=== PATIENT | male | born 1990 | race African-American/Black ===

== ENCOUNTER 2016-04-07 11:15 | Inpatient (IN) | payer OTHER ==
--- NOTE | ~2016-04-07 | DS ---
Unit #: [id number] #: [id number] Patient: MEÑO ADAMS [id number] [facility] [address] [place] [address] [id number] I MR#: [id number] NAME: MEÑO ADAMS ROOM: 32 Age: 25 Sex: M Admission Date: 04/07/2016 : 1990 Discharge Date: 04/12/2016 Attending Physician: Elmer Gusman M.D. Primary Care Physician: Primary Care Physician No DISCHARGE SUMMARY IDENTIFYING DATA Mr. Adams is a 25-year-old male, who is a resident of [place], [place] and was transferred to us from [facility] Emergency Room. DISCHARGE DIAGNOSES Psychiatric: Major depressive disorder, recurrent, moderate, without psychotic features; alcohol abuse, moderate; cannabis abuse, moderate. Medical: None. Stressors: Moderate psychosocial stressors. HISTORY OF PRESENT ILLNESS Please see initial psychiatric evaluation for details. PAST PSYCHIATRIC HISTORY Please see initial psychiatric evaluation for details. PAST MEDICAL HISTORY Please see initial psychiatric evaluation for details. HOSPITAL COURSE The patient [facility] and was oriented to the hospital environment; however, his presentation was quite different from his initial complaint as he was seen to be acutely psychotic, agitated, irritable, and exhibiting bizarre behavior and particularly exhibiting sexually acting-out behavior to where he immediately had to be moved to a different floor. Once again, he was exhibiting inappropriate sexual behavior and exposing himself and calling names and touching females and refusing to follow up with any treatment recommendations and then he was needing p.r.n. medication injections and had a very violent outburst, which required code being called and the patient ended up in restraints and intramuscular injections of Haldol and Benadryl have been given. He then was able to calm down significantly following that episode and initially was maintained on one-to-one level of precaution with a male staff only due to his sexually acting-out behavior. However, he was able to come off it and was calm and stated he needs to get out and has a school to attend and was willing to do the treatment on an outpatient basis and was denying any suicidal ideations, intent, or plan and was not seen to be danger to self or anyone else, and as such, it was decided that he will be discharged home and will continue treatment on an outpatient basis. DISCHARGE MEDICATIONS Zoloft 100 mg a day for depression and trazodone 100 mg at bedtime for Unit #: [id number] #: [id number] Patient: MEÑO ADAMS. DISCHARGE CONDITION Stable. PROGNOSIS Guarded. Dictated by... Jose Juan Aaron/gomez TD: 04/12/2016 23:58 JOB #: [id number] DISCHARGE SUMMARY X Elmer Gusman MD X DISCHARGE SUMMARY
--- NOTE | ~2016-04-07 | PN ---
Unit #: [id number] #: [id number] Patient: MEÑO COLBY [id number] [facility] [address] [place] [address] [id number] I MR#: [id number] NAME: MEÑO COLBY ROOM: 32 Age: 25 Sex: M Admission Date: 04/07/2016 : 1990 Attending Physician: Elmer Gusman M.D. Admitting Physician: Elmer Gusman M.D. Primary Care Physician: Primary Care Physician Rachel SANTIAGO NOTES DATE April 10, 2016 DISCUSSION Mr. Colby is a 25-year-old male, who was seen today and chart was reviewed and the case was discussed with the staff. He appears to b doing better than yesterday after having a rough day, he has been rather calmer and cooperative, though has been maintained on one-to-one level of precaution and remains acutely psychotic with a bizarre behavior and unable to be redirected, and carry on meaningful conversation. MENTAL STATUS EXAMINATION Young male, who was casually dressed with fair personal hygiene and appears to be in no acute distress or discomfort. He was awake and alert with impaired attention and concentration. His mood is anxious with a congruent affect. His speech is slow and restricted in content. His thought processes are disorganized with some looseness of associations. His insight and judgment remain significantly impaired. TREATMENT PLAN 1. We will continue him on his current medications and treatment protocol, and will monitor his response to the medications, and make further adjustments as needed. 2. We will continue to followup. Dictated by... Jose Juan Aaron/krystyna TD: 04/11/2016 05:22 JOB #: [id number] Unit #: [id number] #: [id number] Patient: MEÑO COLBY PROGRESS NOTES X Elmer Gusman MD PROGRESS NOTE
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
--- NOTE | ~2016-04-07 | HP ---
Unit #: [id number] #: [id number] Patient: PIPER ADAMS [id number] [place] [address] [id number] I MR#: [id number] NAME: PIPER ADAMS ROOM: 32 Age: 25 Sex: M Admission Date: 04/07/2016 : 1990 Attending Physician: Elmer Gusman M.D. Admitting Physician: Elmer Gusman M.D. Primary Care Physician: Primary Care Physician No HISTORY AND PHYSICAL HISTORY OF PRESENT ILLNESS Piper is a 25 year old admitted to [address] [place] [address] with depression and verbalizing wanting to hurt himself. PAST MEDICAL HISTORY Nothing significant. PAST SURGICAL HISTORY Nothing reported. ALLERGIES No known drug allergies. SOCIAL HISTORY He does not smoke. Drinks alcohol and uses marijuana on a regular basis. FAMILY HISTORY Medically noncontributory. REVIEW OF SYSTEMS CONSTITUTIONAL: No fever or chills. HEENT: Denies any sore throat, ear pain or runny nose. CARDIOVASCULAR: Denies chest pain, irregular heart rhythm or palpitations. CHEST: Denies shortness of breath or cough. No hemoptysis. GASTROINTESTINAL: Denies nausea, vomiting, diarrhea or chronic constipation. ENDOCRINE: Denies history of increased thirst or urination. No recent significant weight loss or gain. GENITOURINARY: Denies dysuria, frequency, or hematuria. SKIN: Denies any rashes. HEMATOLOGIC: Denies history of increased bleeding or bruising. MUSCULOSKELETAL: Denies any hot, swollen joints. No generalized muscle pain. NEUROLOGIC: Denies problems with vision or speech. No frequent, severe headaches. No numbness, tingling or weakness in any extremities. Denies loss of bladder or bowel control. CURRENT MEDICATIONS 1. Zoloft 100 mg q. day. 2. Vistaril p.r.n. 3. Desyrel 100 mg q.h.s. 4. Milk of Magnesia p.r.n. 5. Maalox p.r.n. Unit #: [id number] #: [id number] Patient: PIPER ADAMS 6. Tylenol p.r.n. 7. Nicotine patch 7 mg q. day. PHYSICAL EXAMINATION GENERAL: Alert, well nourished. No apparent distress. VITAL SIGNS: Blood pressure 124/86, heart rate 100, respirations 16, and temperature 98.6. WEIGHT: 190. HEIGHT: 6 feet 2 inches. SKIN: Warm and dry without rash or lesion. HEENT: Normocephalic. TMs not viewed. Oral and nasal passages clear. Conjunctivae clear. PERRLA. EOMs intact. NECK: Supple without lymphadenopathy or thyromegaly. HEART: Regular rate and rhythm without murmur. LUNGS: Clear. ABDOMEN: Soft, nontender. : Not done. EXTREMITIES: No evidence of cyanosis, clubbing or edema. Moves all without focal deficit. NEUROLOGICAL: Grossly within normal limits. Cranial Nerves: II: Visual cantu are intact. III, IV AND : Extraocular movements are intact. Pupils are equal, round and reactive to light. V: Facial sensation is grossly normal. VII: Facial movements and expression are normal. VIII: Auditory acuity grossly intact. IX, X: Uvula is midline. Phonation is normal. XI: Patient shrugs shoulders and turns head normally. XII: Tongue protrudes in the midline. Sensory and Motor Function: Sensory and motor sensation is grossly normal. Motor: moves all extremities well. Coordination: Gait is normal. Deep Tendon Reflexes: Intact. IMPRESSION Psychiatric admission. RECOMMENDATIONS PSYCHIATRIC: Per psychiatrist. MEDICAL: I see no contraindication to participate in this facility's activities. MEDICAL PROGNOSIS Good. MEDICAL CONDITION Stable. Dictated by... Zakiya Urena P.A.-C. for Jose Juan Jauregui/rach TD: 04/08/2016 09:36 JOB #: [id number] Unit #: [id number] #: [id number] Patient: PIPER ADAMS HISTORY AND PHYSICAL X Zakiya Urena X HISTORY AND PHYSICAL
--- NOTE | ~2016-04-07 | PN ---
Unit #: [id number] #: [id number] Patient: MEÑO COLBY [id number] [facility] [address] [place] [address] [id number] I MR#: [id number] NAME: MEÑO COLBY ROOM: 32 Age: 25 Sex: M Admission Date: 04/07/2016 : 1990 Attending Physician: Elmer Gusman M.D. Admitting Physician: Elmer Gusman M.D. Primary Care Physician: Primary Care Physician Rachel SANTIAGO NOTES DATE 04/11/2016 DISCUSSION Mr. Colby is a 25-year-old male who was seen today and chart was reviewed and case was discussed with the staff. He has been anxious, withdrawn and rather seclusive to himself. Meanwhile, he has been cooperative with treatment recommendations and has been taking medications and tolerating them fairly well with no reported side effects. MENTAL STATUS EXAMINATION Young male who was casually dressed with fair personal hygiene and appears to be in no acute distress or discomfort. He was awake and alert on interaction with intact orientation. His mood was anxious with congruent affect. He denies any suicidal or homicidal ideation and also denies any auditory or visual hallucinations. His insight and judgement remains slightly impaired. TREATMENT PLAN 1. Will continue him on his current medications and treatment protocol. Will monitor his response to the medications and make further adjustments as needed. 2. Will continue follow up. Dictated by... Jose Juan Aaron/tona TD: 04/12/2016 15:52 JOB #: [id number] Unit #: [id number] #: [id number] Patient: MEÑO COLBY PROGRESS NOTES X Elmer Gusman MD PROGRESS NOTE
--- NOTE | ~2016-04-07 | PN ---
Unit #: [id number] #: [id number] Patient: MEÑO CLOBY [id number] [facility] [address] [place] [address] [id number] I MR#: [id number] NAME: MEÑO COLBY ROOM: 32 Age: 25 Sex: M Admission Date: 04/07/2016 : 1990 Attending Physician: Elmer Gusman M.D. Admitting Physician: Elmer Gusman M.D. Primary Care Physician: Primary Care Physician Rachel SANTIAGO NOTES DATE April 08, 2016 DISCUSSION Mr. Colby is a 25-year-old male, who was seen today and chart was reviewed and the case was discussed with the staff. Staff reports that the patient has been anxious, restless, and irritable and has been exhibiting bizarre behavior. He has been on acting out precautions and he has been reaching out and touching females and does not appear to be agitated or irritable, or having any malicious intent behind it, as he walks out to talk to me from his bathroom with his towel wrapped around him and was seen to be very animated and was constantly making gestures and trying to express and explain himself, and had difficulty doing a good job with that. However, no anger or aggression has been reported. MENTAL STATUS EXAMINATION Young male, who was casually dressed with fair personal hygiene and appears to be in no acute distress or discomfort. He was awake and alert with impaired attention and concentration. His mood is anxious with a congruent affect. His speech is fluent and tangential. His thought processes are disorganized with some looseness of associations and flight ideations and delusional behavior. His insight and judgment remain significantly impaired. TREATMENT PLAN 1. We will continue him on his current medications and will adjust the medication and recommend adding antidepressant and anxiolytic therapy. 2. We will continue to followup. Dictated by... Jose Juan Aaron/krystyna TD: 04/09/2016 12:21 JOB #: [id number] Unit #: [id number] #: [id number] Patient: MEÑO COLBY PEAJENNY PROGRESS NOTES X Elmer Gusman MD NOTE
--- NOTE | ~2016-04-07 | PA ---
Unit #: [id number] #: [id number] Patient: MEÑO ADAMS [id number] [facility] [address] [place] [address] [id number] I MR#: [id number] NAME: MEÑO ADAMS ROOM: P132 Age: 25 Sex: M Admission Date: 04/07/2016 : 1990 Date of Assessment: Attending Physician: Elmer Gusman M.D. Admitting Physician: Elmer Gusman M.D. Primary Care Physician: Primary Care Physician No PSYCHIATRIC ASSESSMENT DATE OF SERVICE 04/07/2016. IDENTIFYING DATA Mr. Adams is a 25-year-old single male who is a resident of [place], [place] and was transferred to us from [facility] Emergency Room. CHIEF COMPLAINT "I'm depressed. I'm having suicidal thoughts." HISTORY OF PRESENT ILLNESS Mr. Adams is a 25-year-old male who was transferred to us from emergency room at [facility] where he presented early in the morning reporting suicidal ideation and depression states that he is depressed due to family stressors and recently becoming homeless and stated that he does not care about his life anymore and does not want to keep fighting for anything and reports that he wants to jump in front of traffic or "something worse." He was unable to maintain his own safety if he was to be discharged from the hospital and unable to contract for safety and does report increasing depression, anxiety, disturbed sleep, psychomotor retardation, feelings of hopelessness and helplessness, and suicidal ideation with intent and plan and as such, inpatient recommendation for psychiatric treatment, safety and stabilization was made and the patient was medically cleared and transferred to us. SUBSTANCE ABUSE HISTORY The patient reports history of alcohol and cannabis abuse with the last use of both of them being on the day of coming to the hospital. He reports that he has been using both of those on regular basis. PAST PSYCHIATRIC HISTORY The patient has not had any prior inpatient or outpatient psychiatric treatment. Review of the medical records indicated currently he is not active in any treatment program, is not seeing a psychiatrist, not taking any psychotropic medications. PAST MEDICAL HISTORY No acute or chronic medical illnesses. ALLERGIES Ibuprofen. Unit #: [id number] #: [id number] Patient: MEÑO ADAMS PERSONAL AND SOCIAL HISTORY A 25-year-old male who reports that he is single and unemployed, and essentially homeless and has poor social support system. MENTAL STATUS EXAMINATION Young male who was casually dressed with fair personal hygiene, appears to be in no acute distress or discomfort. He was awake and alert on interaction with intact orientation to time, place, and person. His mood was anxious and depressed with a congruent affect. His speech was slow and restricted in content. His thought processes were disorganized with some looseness of associations and suicidal ideations. His insight and judgment remain significantly impaired. DIAGNOSTIC IMPRESSION Psychiatric: Major depressive disorder, recurrent, moderate, without psychotic features; alcohol abuse, moderate; cannabis abuse, moderate. Medical: None. Stressors: Moderate psychosocial stressors. TREATMENT PLAN 1. The patient has presented with history of mood disorder and substance abuse, and has been decompensating and will need inpatient hospitalization for safety and stabilization. We will start him back on his home medications. We will adjust the medications. We will also consider a trial of antidepressant therapy. 2. Supportive therapy was provided to the patient. ESTIMATED LENGTH OF STAY 5 to 7 days. ABILITY TO HELP SELF Limited. WILLINGNESS TO HELP SELF The patient appears to be willing to help self. STRENGTHS 1. Communicative. 2. Cooperative. PROBLEMS 1. Chronic dysphoric symptoms. 2. Poor social support system. DISCHARGE CRITERIA This will be contingent upon the patient's ability to show resolution of his depression and anxiety as well as his ability to stay safe to himself, particularly after discharge from the hospital. Dictated by... Jose Juan Aaron/gomez TD: 04/08/2016 22:22 JOB #: [id number] Unit #: [id number] #: [id number] Patient: MEÑO ADAMS PSYCHIATRIC ASSESSMENT X Elmer Gusman MD X PSYCHIATRIC ASSESSMENT
[~2016-04-07 11:15] MED LIST: ERYTHROMYCIN O3.5 GM OD; KEFLEX500 MG PO; NAPROSYN500 MG PO; NIZORAL 2% CREA15 GM EXT; VICODIN 5/1 TAB 5/50 PO
== END 2016-04-12 13:03 | disposition home or self-care (01) | DRG 885 ==
LOC: P2S 11:15 → P1S 17:31
DX: F33.1 Major depressive disorder, recurrent, moderate (principal); F10.10 Alcohol abuse, uncomplicated; F12.10 Cannabis abuse, uncomplicated; F17.200 Nicotine dependence, unspecified, uncomplicated
CPT/HCPCS: J1200; J1630

== ENCOUNTER 2016-05-04 23:44 | Emergency (ER) | payer OTHER ==
[2016-05-05 00:55] LABS: AMPHETAMINE POS (NEG); BARBITURATES POS (NEG); BENZODIAZEPINES NEG (NEG); COCAINE NEG (NEG); MARIJUANA POS (NEG); OPIATES NEG (NEG); TRICYCLIC ANTIDEPRESSANTS NEG (NEG); U METHADONE NEG (NEG)
[2016-05-05 01:10] LABS: ACETAMINOPHEN <10 ug/mL; ALBUMIN SERUM 4.2 g/dL (3.5-5.0); ALCOHOL BLOOD 5 mg/dL (0); ALKALINE PHOSPHATASE 93 U/L (32-92); ALT (SGPT) 229 U/L (10-40); AST (SGOT) 61 U/L (10-42); BILIRUBIN, DIRECT 0.1 mg/dL (0.0-0.2); BILIRUBIN,INDIRECT 0.3 mg/dL (0.0-0.9); BILIRUBIN,TOTAL 0.4 mg/dL (0.2-2.0); BLOOD UREA NITROGEN 14 mg/dL (9-23); CALCIUM SERUM 8.9 mg/dL (8.4-10.2); CARBON DIOXIDE 24 mmol/L (22-31); CHLORIDE 98 mmol/L (100-111); CREATININE SERUM 0.7 mg/dL (0.6-1.4); GLOM FILT RATE Estimated 152.1 mL/min (>60); GLUCOSE FASTING 115 mg/dL (70-110); POTASSIUM 3.7 mmol/L (3.5-5.1); PROTEIN TOTAL SERUM 7.4 g/dL (6.0-8.3); SALICYLATE <4.0 mg/dL; SODIUM 132 mmol/L (135-145)
== END 2016-05-05 11:10 | disposition short-term general hospital (02) ==
LOC: CED 23:44
PROVIDERS: Emergency Medicine
DX: R45.851 Suicidal ideations (principal); F31.9 Bipolar disorder, unspecified; F90.9 Attention-deficit hyperactivity disorder, unspecified type
CPT/HCPCS: 36415; 80048; 80076; 80307; 99285; G0480

== ENCOUNTER 2016-05-05 11:30 | Inpatient (IN) | payer OTHER ==
--- NOTE | ~2016-05-05 | PN ---
Unit #: [id number] #: [id number] Patient: MEÑO ADAMS [id number] [facility] [address] [place] [address] [id number] I MR#: [id number] NAME: MEÑO ADAMS ROOM: P252 Age: 25 Sex: M Admission Date: 05/05/2016 : 1990 Attending Physician: Elmer Gusman M.D. Admitting Physician: Jose Juan Aaron PROGRESS NOTES DATE OF SERVICE: 05/09/2016 SUBJECTIVE Mr. Adams is a 25-year-old male, who was seen today and chart was reviewed and the case was discussed with the staff. He has been anxious, withdrawn, and rather seclusive to himself. Meanwhile, he has been cooperative with the treatment recommendations and has been taking the medications and tolerating them fairly well with no reported side effects. MENTAL STATUS EXAMINATION Young male, who was casually dressed with fair personal hygiene, appears to be in no acute distress or discomfort. He was awake and alert with impaired attention and concentration. His mood was anxious with a congruent affect. His speech was slow and restricted in content. His thought processes were disorganized with some looseness of associations. His insight and judgment remain significantly impaired. TREATMENT PLAN 1. We will continue him on his current medications and treatment protocol. We will monitor his response and make further adjustments as needed. 2. We will continue to follow up. Dictated by... Jose Juan Aaron/lucianal TD: 05/09/2016 12:59 JOB #: [id number] Unit #: [id number] #: [id number] Patient: MEÑO ADAMS PROGRESS NOTES Page 1 of 1 X Elmer Gusman MD PROGRESS NOTE
--- NOTE | ~2016-05-05 | DS ---
Unit #: [id number] #: [id number] Patient: MEÑO ADAMS [id number] [facility] [address] [place] [address] [id number] I MR#: [id number] NAME: MEÑO ADAMS ROOM: [facility] Age: 25 Sex: M Admission Date: 05/05/2016 : 1990 Discharge Date: 05/10/2016 Attending Physician: Elmer Gusman M.D. Primary Care Physician: Primary Care Physician No DISCHARGE SUMMARY IDENTIFYING DATA Mr. Adams is a 25-year-old single male who is known to us from previous encounter, was transferred to us from [facility]. DISCHARGE DIAGNOSES Psychiatric: Major depressive disorder, recurrent, moderate, without psychotic features; alcohol abuse, moderate; cannabis abuse, moderate; cocaine abuse, moderate. Medical: None. Stressors: Moderate psychosocial stressors. HISTORY OF PRESENT ILLNESS Please see initial psychiatric evaluation for details. PAST PSYCHIATRIC HISTORY Please see initial psychiatric evaluation for details. PAST MEDICAL HISTORY Please see initial psychiatric evaluation for details. HOSPITAL COURSE The patient was [facility] and was oriented to the hospital environment. Routine p.r.n. medications were initiated, and he was started back on his home medications and medications were adjusted and he was closely monitored. He was taking the medications regularly and was tolerating them fairly well and was able to show a decent therapeutic response with improvement in depression and anxiety and as such, it was decided that he will be discharged home and will continue treatment on an outpatient basis. DISCHARGE MEDICATIONS Zoloft 100 mg a day for depression, Zyprexa 10 mg at bedtime for mood disorder, and trazodone 100 mg at bedtime for sleep. DISCHARGE CONDITION Stable. PROGNOSIS Fair. Dictated by... Elmer Gusman M.D. Unit #: [id number] #: [id number] Patient: MEÑO ADAMS IAA/modl TD: 05/10/2016 17:11 JOB #: [id number] DISCHARGE SUMMARY Page 1 of 1 X Elmer Gusman MD X DISCHARGE SUMMARY
--- NOTE | ~2016-05-05 | PA ---
Unit #: [id number] #: [id number] Patient: MEÑO ADAMS [id number] [facility] [address] [place] [address] [id number] MR#: [id number] NAME: MEÑO ADAMS ROOM: P252 Age: 25 Sex: M Admission Date: 05/05/2016 : 1990 Date of Assessment: 05/05/2016 Attending Physician: Elmer Gusman M.D. Admitting Physician: Elmer Gusman M.D. Primary Care Physician: Primary Care Physician No PSYCHIATRIC ASSESSMENT DATE OF SERVICE 05/05/2016. IDENTIFYING DATA Mr. Adams is a 25-year-old single male, who is a resident of [place], [place], and was transferred to us from [facility] Emergency Room. CHIEF COMPLAINT "Suicidal ideation and my ADHD." HISTORY OF PRESENT ILLNESS Mr. Adams is a 25-year-old male, who was transferred to us from [facility], where he presented reporting that he has been having suicidal thoughts for the past week and yesterday and "played in traffic." He reports that his plan is to overdose on street drugs and has access to such drugs and stated that he cannot stop the thoughts and has been having "what it is." He reports precipitating events being separation from his 6 months ago and yesterday changed her name on Facebook to a maiden name and he stated a rachael brought him here and dropped him off at the emergency room. 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; however, reports poor social support system and has been living with his father and stated that he feels incompatible to everybody and misses his and he is sad about the separation and the broke up with him and he is currently unemployed and reports financial stressors and feelings of hopelessness and helplessness, and "I feel like I lost control." He also stated that he has a decrease in his activities of daily living and his personal hygiene and he has been sleeping more and he has also been eating more and does report suicidal ideations with intent and plan, and does have a history of suicide attempt a month ago by cutting his wrist and as such, recommendation for inpatient level of care for safety and stabilization was made and the patient was medically cleared and transferred to us. SUBSTANCE ABUSE HISTORY The patient has history of alcohol, cannabis, and cocaine abuse, and reports that he has been drinking a pint of liquor on weekends and has been smoking cannabis and cocaine and that he stated no use of synthetic drugs, then later indicated that he has used spice in the past and has history of previous blackouts when using spice and alcohol together and he reports that he is now smoking cannabis on daily basis, but "I'm trying to cut down to just weekends." Unit #: [id number] #: [id number] Patient: MEÑO ADAMS PAST PSYCHIATRIC HISTORY The patient has had history of inpatient psychiatric hospitalization at [facility] along with outpatient treatment at [facility] and has been diagnosed and treated for bipolar disorder. Review of the medical records indicate that he is supposed to be on Zyprexa and Zoloft and trazodone, but has been rather noncompliant with medication and as such, has been decompensating. PAST MEDICAL HISTORY No acute or chronic medical illnesses. ALLERGIES No known medication allergies. PERSONAL AND SOCIAL HISTORY A 25-year-old male, who reports that he is single, unemployed, and lives at home with his father and has poor social support system. MENTAL STATUS EXAMINATION Young male who was casually dressed with fair personal hygiene, appears to be in no acute distress or discomfort. He was awake and alert on interaction with intact orientation to time, place, and person. His mood was anxious and depressed with a congruent affect. His speech was slow and restricted in content. His thought processes were disorganized with some looseness of associations and flight of ideas and suicidal ideations. His insight and judgment remain significantly impaired. DIAGNOSTIC IMPRESSION Psychiatric: Major depressive disorder, recurrent, moderate, without psychotic features; alcohol abuse, moderate; cannabis abuse, moderate; cocaine abuse, moderate. Medical: None. Stressors: Moderate psychosocial stressors. TREATMENT PLAN 1. The patient has presented with history of substance abuse and mood disorder and has been decompensating and will need inpatient hospitalization for detoxification, safety, and stabilization. We will start him back on his home medications. We will adjust the medications and monitor response. 2. Supportive therapy was provided to the patient. 3. Safe, structured, and nourishing environment will be provided. ESTIMATED LENGTH OF STAY 5 to 7 days. ABILITY TO HELP SELF Limited. WILLINGNESS TO HELP SELF The patient appears to be willing to help self. STRENGTHS 1. Communicative. 2. Cooperative. Unit #: [id number] #: [id number] Patient: MEÑO ADAMS PROBLEMS 1. Chronic dysphoric symptoms. 2. Poor social support system. DISCHARGE CRITERIA This will be contingent upon the patient's ability to show resolution of his depression and psychosis and his ability to stay safe to himself, particularly after discharge from the hospital. Dictated by... Emler Gusman M.D. ZOIE/gomez TD: 05/07/2016 01:17 JOB #: [id number] PSYCHIATRIC ASSESSMENT Page 1 of 1 X Elmer Gusman MD PSYCHIATRIC ASSESSMENT
--- NOTE | ~2016-05-05 | HP ---
Unit #: [id number] #: [id number] Patient: PIPER ADAMS [id number] [place] [address] [id number] I MR#: [id number] NAME: PIPER ADAMS ROOM: P252 Age: 25 Sex: M Admission Date: 05/05/2016 : 1990 Attending Physician: Elmer Gusman M.D. Admitting Physician: Elmer Gusman M.D. Primary Care Physician: Primary Care Physician No HISTORY AND PHYSICAL HISTORY OF PRESENT ILLNESS Piper is a 25-year-old male admitted to [address] [place] [address] with depression and verbalizing wanting to hurt himself. PAST MEDICAL HISTORY Nothing significant. PAST SURGICAL HISTORY Nothing reported. ALLERGIES No known drug allergies. SOCIAL HISTORY Smokes one pack per day. Drinks alcohol on occasion. Admits to using marijuana and cocaine frequently. FAMILY HISTORY Medically noncontributory. REVIEW OF SYSTEMS CONSTITUTIONAL: No fever or chills. HEENT: Denies any sore throat, ear pain or runny nose. CARDIOVASCULAR: Denies chest pain, irregular heart rhythm or palpitations. CHEST: Denies shortness of breath or cough. No hemoptysis. GASTROINTESTINAL: Denies nausea, vomiting, diarrhea or chronic constipation. ENDOCRINE: Denies history of increased thirst or urination. No recent significant weight loss or gain. GENITOURINARY: Denies dysuria, frequency, or hematuria. SKIN: Denies any rashes. HEMATOLOGIC: Denies history of increased bleeding or bruising. MUSCULOSKELETAL: Denies any hot, swollen joints. No generalized muscle pain. NEUROLOGIC: Denies problems with vision or speech. No frequent, severe headaches. No numbness, tingling or weakness in any extremities. Denies loss of bladder or bowel control. CURRENT MEDICATIONS 1. Zoloft 100 mg daily 2. Desyrel 100 mg q.h.s. Unit #: [id number] #: [id number] Patient: PIPER ADAMS 3. Zyprexa 10 mg q.h.s. 4. Milk of Magnesia p.r.n. 5. Maalox p.r.n. 6. Tylenol p.r.n. 7. Nicotine patch 14 mg daily PHYSICAL EXAMINATION GENERAL: Alert, well-nourished, in no apparent distress. VITAL SIGNS: Blood pressure 140/88, heart rate 90, respirations 16, temperature 98.6. WEIGHT: 172 pounds. HEIGHT: 6'2". SKIN: Warm and dry without rash or lesion. HEENT: Normocephalic. TMs not viewed. Oral and nasal passages clear. Conjunctivae clear. Pupils equal, round and reactive to light and accommodation. Extraocular movements intact. NECK: Supple without lymphadenopathy or thyromegaly. HEART: Regular rate and rhythm without murmur. LUNGS: Clear. ABDOMEN: Soft, nontender. : Not done. EXTREMITIES: No evidence of cyanosis, clubbing or edema. Moves all extremities without focal deficit. NEUROLOGICAL: Grossly within normal limits. Cranial Nerves: II: Visual cantu are intact. III, IV AND : Extraocular movements are intact. Pupils are equal, round and reactive to light. V: Facial sensation is grossly normal. VII: Facial movements and expression are normal. VIII: Auditory acuity grossly intact. IX, X: Uvula is midline. Phonation is normal. XI: Patient shrugs shoulders and turns head normally. XII: Tongue protrudes in the midline. Sensory and Motor Function: Sensory and motor sensation is grossly normal. Motor: moves all extremities well. Coordination: Gait is normal. Deep Tendon Reflexes: Intact. IMPRESSION Psychiatric admission. RECOMMENDATIONS PSYCHIATRIC: Per psychiatrist. MEDICAL: I see no contraindications to participating in facility's activities. MEDICAL PROGNOSIS Good. MEDICAL CONDITION Stable. Dictated by... Zakiya Urena P.A.-C. for Jose Juan Jauregui/jesse Unit #: [id number] #: [id number] Patient: PIPER ADAMS TD: 05/06/2016 03:12 JOB #: [id number] HISTORY AND PHYSICAL Page 1 of 1 X Zakiya Urena HISTORY AND PHYSICAL
--- NOTE | ~2016-05-05 | PN ---
Unit #: [id number] #: [id number] Patient: MEÑO COLBY [id number] [facility] [address] [place] [address] [id number] I MR#: [id number] NAME: MEÑO COLBY ROOM: P252 Age: 25 Sex: M Admission Date: 05/05/2016 : 1990 Attending Physician: Elmer Gusman M.D. Admitting Physician: Elmer Gusman M.D. Primary Care Physician: Primary Care Physician Rachel SANTIAGO NOTES DATE 05/07/2016 DISCUSSION Mr. Colby is a 25-year-old male with mood disorder and psychosis who was seen today and chart was reviewed and case was discussed with the staff. He has been anxious, withdrawn and rather seclusive to himself though appears to be doing better in his mood and aggression. However, has been complaining of persistent depression and suicidal thoughts. He has been compliant with treatment recommendations and has been taking medications and tolerating them fairly well. MENTAL STATUS EXAMINATION Young male who was casually dressed with fair personal hygiene and appears to be in no acute distress or discomfort. He was awake and alert on interaction with intact orientation. His mood was anxious and depressed with congruent affect. His speech is slow and restricted in content. His thought processes were disorganized with looseness of associations. His insight and judgement remains slightly impaired. TREATMENT PLAN 1. Will continue on his current medications and treatment protocol. Will monitor his response to the medications and make further adjustments as needed. 2. Will continue to follow up. Dictated by... Jose Juan Aaron/tona TD: 05/08/2016 17:53 JOB #: [id number] Unit #: [id number] #: [id number] Patient: MEÑO COLBY PROGRESS NOTES Page 1 of 1 X Elmer Gusman MD PROGRESS NOTE
--- NOTE | ~2016-05-05 | PN ---
Unit #: [id number] #: [id number] Patient: EMÑO COLBY [id number] [facility] [address] [place] [address] [id number] I MR#: [id number] NAME: MEÑO COLBY ROOM: P252 Age: 25 Sex: M Admission Date: 05/05/2016 : 1990 Attending Physician: Elmer Gusman M.D. Admitting Physician: Elmer Gusman M.D. Primary Care Physician: Primary Care Physician Rachel SANTIAGO NOTES DATE OF SERVICE 05/06/2016 DISCUSSION Mr. Colby is a 25-year-old male who was seen today. Chart was reviewed and case was discussed with staff. He has been anxious and withdrawn though has not shown any agitation or irritability and has been cooperative with the treatment recommendations as he has been taking the medications and tolerating them fairly well with no reported side effects. MENTAL STATUS EXAMINATION Young male who is casually dressed with fair personal hygiene, appears to be in no acute distress or discomfort. He was awake and alert with impaired attention and concentration. His mood is anxious and depressed with congruent affect. Speech is slow and restricted in content. His thought processes were disorganized with some looseness of associations, paranoid ideations, and delusional behavior. Her insight and judgment remain significantly impaired. TREATMENT PLAN 1. We will continue him on his current medications and treatment protocol. We will monitor his response to the medications and make further adjustments as needed. 2. We will continue to follow up. Dictated by... Jose Juan Aaron/rach TD: 05/07/2016 10:11 JOB #: [id number] Unit #: [id number] #: [id number] Patient: MEÑO COLBY PROGRESS NOTES Page 1 of 1 X Elmer Gusman MD PROGRESS NOTE
--- NOTE | ~2016-05-05 | PN ---
Unit #: [id number] #: [id number] Patient: MEÑO COLBY [id number] [facility] [address] [place] [address] [id number] I MR#: [id number] NAME: MEÑO COLBY ROOM: P252 Age: 25 Sex: M Admission Date: 05/05/2016 : 1990 Attending Physician: Elmer Gusman M.D. Admitting Physician: Elmer Gusman M.D. Primary Care Physician: Primary Care Physician Rachel LEE PROGRESS NOTES DATE 05/08/2016 DISCUSSION Mr. Colby is a 25-year-old, male with mood disorder and psychosis who was seen today and chart was reviewed and case was discussed with the staff. He has been anxious, withdrawn rather seclusive to himself. Meanwhile, he has been cooperative with treatment recommendations. He has been taking medications and tolerating them fairly well with no reported side effects. MENTAL STATUS EXAM Young male who was casually dressed with fair personal hygiene, appears to be in no acute distress or discomfort. He was awake and alert with impaired attention and concentration. His mood was anxious with a congruent affect. His speech was slow and restricted in content. His thought processes were disorganized with some looseness of associations. His insight and judgement remains slightly impaired. TREATMENT PLAN 1. We will continue him on his current medications and treatment protocol. We will monitor his response to the medication and make further adjustments as needed. 2. We will continue to follow up. Dictated by... Jose Juan Aaron/jesse TD: 05/12/2016 03:59 JOB #: [id number] Unit #: [id number] #: [id number] Patient: MEÑO COLBY PROGRESS NOTES Page 1 of 1 X Elmer Gusman MD PROGRESS NOTE
[2016-05-06 09:37] LABS: BASOPHIL% 0.3 % (0-2.5); EOSINOPHIL# 0.1 X10e3 (0-0.7); EOSINOPHIL% 3.1 % (0.0-7.0); HEMATOCRIT 44.4 % (38.0-50.0); HEMOGLOBIN 14.5 gm/dL (13.0-16.0); LYMPHOCYTE# 1.9 X10e3 (1.0-3.5); LYMPHOCYTE% 47.5 % (17.0-45.0); MEAN CELL VOLUME 95.4 FL (83-96); MEAN CORPUSCULAR HEMOGLOBIN 31.3 PG (28-34); MEAN CORPUSCULAR HGB CONC 32.8 g/dL (30-36); MEAN PLATELET VOLUME 8.8 FL (6.5-11.5); MONOCYTE# 0.4 X10e3 (0-1.0); MONOCYTE% 10.8 % (3.0-12.0); NEUTROPHIL# 1.5 X10e3 (1.5-7.1); NEUTROPHIL% 38.3 % (40-75); PLATELET COUNT 219 X10e3 (140-420); RED BLOOD COUNT 4.65 X10e (3.90-5.60); RED CELL DISTRIBUTION WIDTH 14.4 % (11.0-15.5); WHITE BLOOD COUNT 3.9 X10e3 (4.0-10.5)
[2016-05-06 09:40] LABS: DIFF IND NO
[2016-05-06 10:00] LABS: THYROID STIMULATING HORMONE 1.01 uIU/ml (0.34-5.60)
[2016-05-06 10:03] LABS: ALBUMIN SERUM 4.1 g/dL (3.5-5.0); BILIRUBIN,TOTAL 0.4 mg/dL (0.2-2.0); BUN/CREATININE RATIO 16.25; CALCIUM SERUM 9.5 mg/dL (8.4-10.2); CREATININE SERUM 0.8 mg/dL (0.6-1.4); POTASSIUM 4.5 mmol/L (3.5-5.1); PROTEIN TOTAL SERUM 7.4 g/dL (6.0-8.3)
[2016-05-06 10:07] LABS: FREE THYROXIN (T4) 0.81 ng/dL (0.58-1.64)
[2016-05-07 12:25] LABS: URINE APPEARANCE CLEAR; URINE BILIRUBIN NEG (NEG); URINE BLOOD NEG (NEG); URINE COLOR YELLOW; URINE GLUCOSE NEG (NEG); URINE KETONE NEG (NEG); URINE LEUKOCYTE ESTERASE 1+ (NEG); URINE NITRATE NEG (NEG); URINE PROTEIN NEG (NEG); URINE UROBILINOGEN 0.2 MG/DL (NEG)
[2016-05-07 12:28] LABS: U HYALINE CASTS AUWI 0-2 /[LPF]; URBCS1 AUWI 0-2 /[HPF] (0-2); URINE BACTERIA AUWI NEG (NEGATIVE); URINE SQUAMOUS EPITHELIAL CELL NONE SEEN /[HPF]
== END 2016-05-10 13:00 | disposition home or self-care (01) | DRG 885 ==
LOC: P2L 11:30
PROVIDERS: Psychiatry & Neurology Psychiatry
PROC: HZ2ZZZZ Detoxification Services for Substance Abuse Treatment (ICD-10-PCS; principal; 2016-05-05)
DX: F33.1 Major depressive disorder, recurrent, moderate (principal); F14.10 Cocaine abuse, uncomplicated; F10.10 Alcohol abuse, uncomplicated; F12.10 Cannabis abuse, uncomplicated; F17.210 Nicotine dependence, cigarettes, uncomplicated
CPT/HCPCS: 80053; 81003; 84439; 84443; 85025

== ENCOUNTER 2016-06-01 16:57 | Emergency (ER) | payer OTHER | END 2016-06-02 09:10 | disposition HOOLOP | LOC: CED 16:57 | DX: R45.851 Suicidal ideations (principal); K13.0 Diseases of lips; I10 Essential (primary) hypertension; F17.200 Nicotine dependence, unspecified, uncomplicated | CPT/HCPCS: 99285 ==

== ENCOUNTER 2016-06-02 10:07 | Inpatient (IN) | payer OTHER ==
--- NOTE | ~2016-06-02 | PN ---
Unit #: [id number] #: [id number] Patient: MEÑO ADAMS [id number] [facility] [address] [place] [address] [id number] I MR#: [id number] NAME: MEÑO ADAMS ROOM: [facility] Age: 25 Sex: M Admission Date: 06/02/2016 : 1990 Attending Physician: Elmer Gusman M.D. Admitting Physician: Elmer Gusman M.D. Primary Care Physician: Primary Care Physician Rachel LEE PROGRESS NOTES DATE 06/05/2016 DISCUSSION Mr. Adams is a 25-year-old male who was seen today and chart was reviewed and case was discussed with the staff. He has been anxious, withdrawn, depressed and rather seclusive to himself. Meanwhile, he has been cooperative with treatment recommendations and has been taking medications and tolerating them fairly well with no reported side effects. MENTAL STATUS EXAMINATION Young male who was casually dressed with fair personal hygiene and appears to be in no acute distress or discomfort. He was awake and alert on interaction with intact orientation. His mood was anxious with congruent affect. He reports having suicidal ideation but denies any homicidal ideation. His insight and judgement remains slightly impaired. TREATMENT PLAN 1. Will continue on his current medications and treatment protocol. Will monitor his response to the medications and make further adjustments as needed. 2. Will continue to follow up. Dictated by... Elmer Gusman M.D. IAA/tona TD: 06/05/2016 16:23 JOB #: [id number] Unit #: [id number] #: [id number] Patient: MEÑO ADAMS PEAJENNY PROGRESS NOTES Page 1 of 1 X Elmer Gusman MD X PROGRESS NOTE
--- NOTE | ~2016-06-02 | PN ---
Unit #: [id number] #: [id number] Patient: MEÑO COLBY [id number] [facility] [address] [place] [address] [id number] I MR#: [id number] NAME: MEÑO COLBY ROOM: [facility] Age: 25 Sex: M Admission Date: 06/02/2016 : 1990 Attending Physician: Elmer Gusman M.D. Admitting Physician: Elmer Gusman M.D. Primary Care Physician: Primary Care Physician Rachel SANTIAGO NOTES DATE OF SERVICE: 06/07/2016 SUBJECTIVE Mr. Colby is a 25-year-old male who was seen today and chart was reviewed and the case was discussed with the staff. He has been anxious, withdrawn, depressed, and rather seclusive to himself with blunted affect and minimal interaction, though has been cooperative with treatment recommendations and has been taking the medication and tolerating them fairly well with no reported side effects. MENTAL STATUS EXAMINATION Young male who was casually dressed with fair personal hygiene, appears to be in no acute distress or discomfort. He was awake and alert on interaction with intact orientation. His mood was anxious with a congruent affect. He denies any suicidal or homicidal ideations, and also denies any auditory or visual hallucinations. His insight and judgment remain significantly impaired. TREATMENT PLAN 1. We will continue him on his current medications and treatment protocol. We will monitor his response to medications and make further adjustments as needed. 2. We will continue to follow up. Dictated by... Jose Juan Aaron/gomez TD: 06/07/2016 13:21 JOB #: [id number] Unit #: [id number] #: [id number] Patient: MEÑO COLBY PEAJENNY PROGRESS NOTES Page 1 of 1 X Elmer Gusman MD PROGRESS NOTE
--- NOTE | ~2016-06-02 | PN ---
Unit #: [id number] #: [id number] Patient: MEÑO COLBY [id number] [facility] [address] [place] [address] [id number] I MR#: [id number] NAME: MEÑO COLBY ROOM: 84 Age: 25 Sex: M Admission Date: 06/02/2016 : 1990 Attending Physician: Elmer Gusman M.D. Admitting Physician: Elmer Gusman M.D. Primary Care Physician: Primary Care Physician Rachel SANTIAGO NOTES DATE OF SERVICE 06/04/2016 DISCUSSION Mr. Colby is a 25-year-old male with mood disorder who was seen today. Chart was reviewed and case was discussed with staff. He remains anxious, withdrawn, depressed, and rather seclusive to himself and has been isolating a lot, and reports he was lying in his bed with his head covered under his blanket and was seen to be minimally interactive with persistent depressive symptoms, blunted affect, and poor eye contact. Meanwhile, he has (1) __ agitation and aggression and has been taking the medications, and the medications were just adjusted yesterday. He has not had anytime shown therapeutic response. MENTAL STATUS EXAMINATION Young male who is casually dressed with marginal personal hygiene and appears to be in no acute distress or discomfort. The patient was awake and alert with impaired attention and concentration. His mood is anxious and depressed with congruent affect. His speech is slow and restricted in content. He reports having suicidal ideation but denies any homicidal ideations. His insight and judgment remain slightly impaired. TREATMENT PLAN 1. We will continue him on his current medications and treatment protocol. We will monitor his response to the medications and make further adjustments as needed. 2. We will continue to follow up. Dictated by... Jose Juan Aaron/rach TD: 06/04/2016 10:53 JOB #: [id number] Unit #: [id number] #: [id number] Patient: MEÑO COLBY [facility] PROGRESS NOTES Page 1 of 1 X Uzma,Elmer Parra MD X PROGRESS NOTE
--- NOTE | ~2016-06-02 | PN ---
Unit #: [id number] #: [id number] Patient: MEÑO COLBY [id number] [facility] [address] [place] [address] [id number] I MR#: [id number] NAME: MEÑO COLBY ROOM: [facility] Age: 25 Sex: M Admission Date: 06/02/2016 : 1990 Attending Physician: Elmer Gusman M.D. Admitting Physician: Elmer Gusman M.D. Primary Care Physician: Primary Care Physician Rachel SANTIAGO NOTES DATE OF SERVICE 06/06/2016 DISCUSSION Mr. Colby is a 29-year-old white male who was seen today. Chart was reviewed and case was discussed with the staff. He has been anxious, withdrawn, and rather seclusive to himself. Meanwhile, he has been cooperative with the treatment recommendations and has been taking the medications and tolerating them fairly well with no reported side effects. MENTAL STATUS EXAMINATION Young male who is casually dressed with fair personal hygiene, appears to be in no acute distress or discomfort. She was awake and alert on interaction with intact orientation. His mood is anxious with congruent affect. His speech is slow and goal-directed. He denies any suicidal or homicidal ideations and also denies any auditory or visual hallucinations. His insight and judgment remain slightly impaired. TREATMENT PLAN 1. We will continue him on his current medications and treatment protocol. We will monitor his response to the medications and make further adjustments as needed. 2. We will continue to follow up. Dictated by... Jose Juan Aaron/rach TD: 06/06/2016 10:36 JOB #: [id number] Unit #: [id number] #: [id number] Patient: MEÑO COLBY PROGRESS NOTES Page 1 of 1 X Elmer Gusman MD PROGRESS NOTE
--- NOTE | ~2016-06-02 | DS ---
Unit #: [id number] #: [id number] Patient: MEÑO ADAMS [id number] [facility] [address] [place] [address] [id number] I MR#: [id number] NAME: MEÑO ADAMS ROOM: 84 Age: 25 Sex: M Admission Date: 06/02/2016 : 1990 Discharge Date: 06/09/2016 Attending Physician: Elmer Gusman M.D. Primary Care Physician: Primary Care Physician No DISCHARGE SUMMARY JOB NOTE: VERIFY DISCHARGE DATE IDENTIFYING DATA Mr. Adams is a 25-year-old single male, who is a resident of [place], [place] and was transferred to from [facility] on a voluntary basis. DISCHARGE DIAGNOSES Psychiatric: Major depressive disorder, recurrent, moderate, without psychotic features; methamphetamine abuse, moderate; cannabis abuse, moderate. Medical: None. Stressors: Moderate psychosocial stressors. HISTORY OF PRESENT ILLNESS Please see initial psychiatric evaluation for details. PAST PSYCHIATRIC HISTORY Please see initial psychiatric evaluation for details. PAST MEDICAL HISTORY Please see initial psychiatric evaluation for details. HOSPITAL COURSE The patient was [facility] and was oriented to the hospital environment. Routine p.r.n. medications were initiated, and he was started back on his home medications including his Zoloft and Zyprexa and was closely monitored. He was taking the medications regularly and was tolerating them fairly well and was seen to be anxious, withdrawn, and rather seclusive to himself in the beginning, though seen to be polite and pleasant. No episode of agitation or aggression was noticed and as such, it was decided that he will be discharged home and will continue treatment on an outpatient basis. DISCHARGE MEDICATIONS Zoloft 100 mg a day for depression and Zyprexa 10 mg at bedtime for psychosis. DISCHARGE CONDITION Stable. PROGNOSIS Fair. Unit #: [id number] #: [id number] Patient: MEÑO ADAMS Dictated by... Jose Juan Aaron/gomez TD: 06/09/2016 06:50 JOB #: [id number] DISCHARGE SUMMARY Page 1 of 1 X Elmer Gusman MD DISCHARGE SUMMARY
--- NOTE | ~2016-06-02 | HP ---
Unit #: [id number] #: [id number] Patient: PIPER ADAMS [id number] [facility] [address] [place] [address] [id number] MR#: [id number] NAME: PIPER ADAMS ROOM: 84 Age: 25 Sex: M Admission Date: 06/02/2016 : 1990 Attending Physician: Elmer Gusman M.D. Admitting Physician: Elmer Gusamn M.D. Primary Care Physician: Primary Care Physician No HISTORY AND PHYSICAL HISTORY OF PRESENT ILLNESS Piper is a 25-year-old admitted to [facility] because of his continued drug use. PAST MEDICAL HISTORY History of poly illicit substance abuse to include methamphetamine, marijuana and barbiturates. PAST SURGICAL HISTORY Nothing reported. ALLERGIES No known drug allergies. SOCIAL HISTORY Smokes one pack per day. Drinks alcohol on occasion. Admits to a history of poly illicit substance abuse. FAMILY HISTORY Medically noncontributory. REVIEW OF SYSTEMS CONSTITUTIONAL: No fever or chills. HEENT: Denies any sore throat, ear pain or runny nose. He reports that he fell on 05/30, sustaining significant lacerations to upper and lower lips. He was sutured in the emergency room at [facility]. CARDIOVASCULAR: Denies chest pain, irregular heart rhythm or palpitations. CHEST: Denies shortness of breath or cough. No hemoptysis. GASTROINTESTINAL: Denies nausea, vomiting, diarrhea or chronic constipation. ENDOCRINE: Denies history of increased thirst or urination. No recent significant weight loss or gain. GENITOURINARY: Denies dysuria, frequency, or hematuria. SKIN: Denies any rashes. HEMATOLOGIC: Denies history of increased bleeding or bruising. MUSCULOSKELETAL: Denies any hot, swollen joints. No generalized muscle pain. NEUROLOGIC: Denies problems with vision or speech. No frequent, severe headaches. No numbness, tingling or weakness in any extremities. Denies loss of bladder or bowel control. CURRENT MEDICATIONS 1. Zyprexa 10 mg daily Unit #: [id number] #: [id number] Patient: PIPER ADAMS 2. Zoloft 100 mg daily 3. Desyrel 100 mg at bedtime 4. Motrin p.r.n. 5. Milk of Magnesia p.r.n. 6. Maalox p.r.n. 7. Tylenol p.r.n. 8. Nicotine patch 21 mg daily 9. Cleocin 300 mg q.i.d. PHYSICAL EXAMINATION Please see admitted H and P dated 05/05/2016. This is current except for the lacerations to his upper and lower lip. Stitches are in place. There is poor skin approximation. There is no increased redness or pus noted. Significant swelling noted along the lower lip. Plan will be to keep the area clean with some peroxide mouth rinse. Patient knows to follow up with PCP at discharge. Please see H and P dated 05/05/2016. Dictated by... Coleen Abebe/teddy TD: 06/02/2016 20:13 JOB #: [id number] HISTORY AND PHYSICAL Page 1 of 1 X Zakiya Urena X HISTORY AND PHYSICAL
--- NOTE | ~2016-06-02 | PN ---
Unit #: [id number] #: [id number] Patient: MEÑO ADAMS [id number] [facility] [address] [place] [address] [id number] MR#: [id number] NAME: MEÑO ADAMS ROOM: 84 Age: 25 Sex: M Admission Date: 06/02/2016 : 1990 Attending Physician: Elmer Gusman M.D. Admitting Physician: Jose Juan Aaron PROGRESS NOTES DATE OF SERVICE: 06/08/2016 SUBJECTIVE Mr. Adams is a 25-year-old male who was seen today and chart was reviewed, and case was discussed with the staff who reports he remains anxious, withdrawn, depressed, and rather seclusive to himself. Meanwhile, he has been cooperative with treatment recommendations and has been taking the medications and tolerating them fairly well. MENTAL STATUS EXAMINATION Young male who was casually dressed with fair personal hygiene, appears to be in no acute distress or discomfort. He was awake and alert with intact orientation. His mood was anxious with a congruent affect. He denies any suicidal or homicidal ideations. His insight and judgment remain slightly impaired. TREATMENT PLAN 1. We will continue him on his current medications and treatment protocol. We will monitor his response to the medications and make further adjustments as needed. 2. We will continue to follow up. Dictated by... Jose Juan Aaron/gomez TD: 06/08/2016 11:38 JOB #: [id number] [facility] PROGRESS NOTES Page 1 of 1 X Elmer Gusman MD PROGRESS NOTE
--- NOTE | ~2016-06-02 | CO ---
Unit #: [id number] #: [id number] Patient: PIPER ADAMS [id number] [facility] [address] [place] [address] [id number] MR#: [id number] NAME: PIPER ADAMS ROOM: [facility] Age: 25 Sex: M Admission Date: 06/02/2016 : 1990 Attending Physician: Elmer Gusman M.D. Primary Care Physician: Primary Care Physician No Consultation Date: 06/02/2016 CONSULTATION REPORT JOB NOTE: DICTATED FOR NOT DICTATED Piper sustained lacerations to his mouth prior to admission. These areas were outlined and described in his admission H and P dated 06/02/2016. Please see H and P dated 06/02/2016. Dictated by... Zakiya Urena P.A.-C. for Jose Juan Jauregui/gomez TD: 06/02/2016 18:45 JOB #: [id number] CONSULTATION REPORT Page 1 of 1 X Zakiya Urena CONSULTATION REPORT
--- NOTE | ~2016-06-02 | PN ---
Unit #: [id number] #: [id number] Patient: MEÑO COLBY [id number] [facility] [address] [place] [address] [id number] I MR#: [id number] NAME: MEÑO COLBY ROOM: 84 Age: 25 Sex: M Admission Date: 06/02/2016 : 1990 Attending Physician: Elmer Gusman M.D. Admitting Physician: Elmer Gusman M.D. Primary Care Physician: Primary Care Physician Rachel LEE PROGRESS NOTES DATE 06/03/2016 DISCUSSION Mr. Colby is a 25-year-old male who was seen today and chart was reviewed and case was discussed with the staff. He has been anxious, withdrawn and rather seclusive to himself. Meanwhile, he has been cooperative with treatment recommendations and has been taking medications and tolerating them fairly well. MENTAL STATUS EXAMINATION Young male who was casually dressed with fair personal hygiene and appears to be in no acute distress or discomfort. He was awake and alert on interaction with intact orientation. His mood was anxious with congruent affect. He denies any suicidal or homicidal ideation. His insight and judgement remains slightly impaired. TREATMENT PLAN 1. Will continue on his current medications and treatment protocol. Will monitor his response to the medications and make further adjustments as needed. 2. Will continue to follow up. Dictated by... Jose Juan Aaron/tona TD: 06/03/2016 17:38 JOB #: [id number] Unit #: [id number] #: [id number] Patient: MEÑO COLBY PROGRESS NOTES Page 1 of 1 X Elmer Gusman MD X PROGRESS NOTE
--- NOTE | ~2016-06-02 | PA ---
Unit #: [id number] #: [id number] Patient: [facility]ÑO COLBY [id number] [facility] [address] [place] [address] [id number] I MR#: [id number] NAME: MEÑO COLBY ROOM: P184 Age: 25 Sex: M Admission Date: 06/02/2016 : 1990 Date of Assessment: 06/02/2016 Attending Physician: Elmer Gusman M.D. Admitting Physician: Elmer Gusman M.D. Primary Care Physician: Primary Care Physician No PSYCHIATRIC ASSESSMENT DATE OF SERVICE 06/02/2016. IDENTIFYING DATA Mr. Colby is a 25-year-old single male, who is a resident of [place], [place], and is known to us from previous encounter, was transferred to us from [facility] on a voluntary basis. CHIEF COMPLAINT "Ever since Thursday I have had suicidal thoughts." HISTORY OF PRESENT ILLNESS Mr. Colby is a 25-year-old male with history of mood disorder, who took himself to [facility] reporting having suicidal ideation, stated that he has been trying to overdose in methamphetamine and continues to endorse suicidal ideation with plan to overdose and reports that his is cheating on him and sleeping with his cousin and stated that they are , but he talked to her and got back into with her, but since then he has been decompensating and now reports increasing depression, anxiety, irritability, restlessness, feelings of hopelessness and helplessness, and suicidal ideations with intent and plan to overdose and was seen to be a danger to self and as such, recommendation for inpatient level of care was made and the patient was medically cleared and then transferred to us. SUBSTANCE ABUSE HISTORY The patient reports history of experimentation and abuse of cannabis, cocaine, and methamphetamine and reports that he currently has been using half a gram of cocaine and half a gram of methamphetamine a week. PAST PSYCHIATRIC HISTORY The patient has had history of [facility] and has been diagnosed and treated for mood disorder. Review of the medical records indicate that he is supposed to be on psychotropic medication, but does not appear to be showing a therapeutic response to medications. PAST MEDICAL HISTORY The patient's medical history is insignificant. ALLERGIES No known medication allergies. Unit #: [id number] #: [id number] Patient: MEÑO COLBY PERSONAL SOCIAL HISTORY A 25-year-old male, who reports that he is single, unemployed, and essentially homeless and has poor social support system. MENTAL STATUS EXAMINATION Young male who was casually dressed with fair personal hygiene, appears to be in no acute distress or discomfort. He was awake and alert on interaction with intact orientation to time, place, and person. His mood was anxious and depressed with a congruent affect. His speech was slow and goal directed. His thought processes were disorganized with some looseness of associations and suicidal ideations. His insight and judgment remain significantly impaired. DIAGNOSTIC IMPRESSION Psychiatric: Major depressive disorder, recurrent, moderate, without psychotic features; methamphetamine abuse, moderate; cocaine abuse, moderate. Medical: None. Stressors: Moderate psychosocial stressors. TREATMENT PLAN 1. The patient has presented with history of substance abuse and mood disorder, and has been decompensating and will need inpatient hospitalization for detoxification, safety, and stabilization. We will start him on detox protocol. We will closely monitor for any worsening withdrawal symptoms. 2. Supportive therapy was provided to the patient. 3. Safe, structured, and nourishing environment will be provided. ESTIMATED LENGTH OF STAY 5 to 7 days. ABILITY TO HELP SELF Limited. WILLINGNESS TO HELP SELF The patient appears to be willing to help self. STRENGTHS 1. Communicative. 2. Cooperative. PROBLEMS 1. Chronic chemical dependency. 2. Chronic dysphoric symptoms. 3. Poor social support system. DISCHARGE CRITERIA This will be contingent upon the patient's ability to show resolution of his depression and anxiety and his ability to stay safe to himself, particularly after discharge from the hospital. Dictated by... Jose Juan Aaron/gomez Unit #: [id number] #: [id number] Patient: MEÑO COLBY TD: 06/03/2016 06:37 JOB #: [id number] PSYCHIATRIC ASSESSMENT Page 1 of 1 X Elmer Gusman MD PSYCHIATRIC ASSESSMENT
[2016-06-03 12:38] LABS: BASOPHIL% 0.2 % (0-2.5); EOSINOPHIL# 0.1 X10e3 (0-0.7); EOSINOPHIL% 3.1 % (0.0-7.0); HEMATOCRIT 40.3 % (38.0-50.0); HEMOGLOBIN 13.4 gm/dL (13.0-16.0); LYMPHOCYTE# 1.2 X10e3 (1.0-3.5); LYMPHOCYTE% 36.5 % (17.0-45.0); MEAN CELL VOLUME 93.7 FL (83-96); MEAN CORPUSCULAR HEMOGLOBIN 31.3 PG (28-34); MEAN CORPUSCULAR HGB CONC 33.4 g/dL (30-36); MEAN PLATELET VOLUME 9.2 FL (6.5-11.5); MONOCYTE# 0.3 X10e3 (0-1.0); MONOCYTE% 10.9 % (3.0-12.0); NEUTROPHIL# 1.6 X10e3 (1.5-7.1); NEUTROPHIL% 49.3 % (40-75); PLATELET COUNT 228 X10e3 (140-420); RED CELL DISTRIBUTION WIDTH 14.2 % (11.0-15.5); WHITE BLOOD COUNT 3.2 X10e3 (4.0-10.5)
[2016-06-03 12:43] LABS: URINE BILIRUBIN NEG (NEG); URINE BLOOD NEG (NEG); URINE COLOR YELLOW; URINE GLUCOSE NEG (NEG); URINE KETONE NEG (NEG); URINE LEUKOCYTE ESTERASE NEG (NEG); URINE NITRATE NEG (NEG); URINE PH 6.5 (5-8); URINE PROTEIN NEG (NEG); URINE SPECIFIC GRAVITY 1.009 (1.003-1.035)
[2016-06-03 12:44] LABS: DIFF IND NO
[2016-06-03 13:00] LABS: URINE APPEARANCE CLEAR
[2016-06-03 13:04] LABS: THYROID STIMULATING HORMONE 0.25 uIU/ml (0.34-5.60)
[2016-06-03 13:10] LABS: ALBUMIN SERUM 3.7 g/dL (3.5-5.0); BILIRUBIN,TOTAL 0.5 mg/dL (0.2-2.0); BUN/CREATININE RATIO 12.5; CALCIUM SERUM 9.2 mg/dL (8.4-10.2); CREATININE SERUM 0.8 mg/dL (0.6-1.4); POTASSIUM 4.3 mmol/L (3.5-5.1); PROTEIN TOTAL SERUM 6.8 g/dL (6.0-8.3)
[2016-06-03 13:11] LABS: AMPHETAMINE POS (NEG); BARBITURATES NEG (NEG); BENZODIAZEPINES NEG (NEG); COCAINE POS (NEG); MARIJUANA POS (NEG); OPIATES NEG (NEG); TRICYCLIC ANTIDEPRESSANTS NEG (NEG); U METHADONE NEG (NEG)
[2016-06-03 13:11] LABS: FREE THYROXIN (T4) 1.06 ng/dL (0.58-1.64)
== END 2016-06-09 08:56 | DRG 885 ==
LOC: P1E 10:07
PROVIDERS: Psychiatry & Neurology Psychiatry
PROC: HZ2ZZZZ Detoxification Services for Substance Abuse Treatment (ICD-10-PCS; principal; 2016-06-02)
DX: F33.1 Major depressive disorder, recurrent, moderate (principal); F14.10 Cocaine abuse, uncomplicated; F15.10 Other stimulant abuse, uncomplicated; S01.512A Laceration without foreign body of oral cavity, initial encounter
CPT/HCPCS: 80053; 80307; 81003; 84439; 84443; 85025

== ENCOUNTER 2016-07-01 07:12 | Inpatient (IN) | payer OTHER ==
--- NOTE | ~2016-07-01 | DS ---
Unit #: [id number] #: [id number] Patient: [facility]ÑO ADAMS [id number] [facility] [address] [place] [address] [id number] MR#: [id number] NAME: MEÑO ADAMS ROOM: [facility] Age: 25 Sex: M Admission Date: 07/01/2016 : 1990 Discharge Date: 07/08/2016 Attending Physician: Elmer Gusman M.D. Primary Care Physician: Primary Care Physician No DISCHARGE SUMMARY IDENTIFYING DATA Mr. Adams is a 25-year-old male with history of mood disorder and substance abuse, who is known to us from previous encounter and was self-referred to the hospital on a voluntary basis. DISCHARGE DIAGNOSES Psychiatric: Major depressive disorder, recurrent, moderate, without psychotic features; opioid dependence, moderate and acute withdrawals. Medical: None. Stressors: Moderate psychosocial stressors. HISTORY OF PRESENT ILLNESS Please see initial psychiatric evaluation for details. PAST PSYCHIATRIC HISTORY Please see initial psychiatric evaluation for details. PAST MEDICAL HISTORY Please see initial psychiatric evaluation for details. HOSPITAL COURSE The patient was [facility] and was oriented to the hospital environment. Routine p.r.n. medications were initiated and he was started on the opioid detox protocol and Celexa 20 mg a day was also started as an antidepressant and was closely monitored. He was seen to be anxious, withdrawn, and rather seclusive to himself and exhibiting persistent depressive symptoms, though he was polite, pleasant, and cooperative with treatment recommendations and was taking the medications and tolerating them fairly well and was able to come out of the detox without any complications. Then, he started showing some age appropriate behavior, particularly towards female staff and was not seen to be in any danger to self or anyone else and was not meeting criteria for further inpatient psychiatric hospitalization, and as such, it was decided that he will be discharged home and will continue treatment on an outpatient basis. DISCHARGE MEDICATIONS Celexa 20 mg a day for depression. DISCHARGE CONDITION Stable. PROGNOSIS Fair. Unit #: [id number] #: [id number] Patient: MEÑO ADAMS Dictated by... Jose Juan Aaron/gomez TD: 07/22/2016 22:43 JOB #: [id number] DISCHARGE SUMMARY Page 1 of 1 X Elmer Gusman MD DISCHARGE SUMMARY
--- NOTE | ~2016-07-01 | PN ---
Unit #: [id number] #: [id number] Patient: MEÑO COLBY [id number] [facility] [address] [place] [address] [id number] MR#: [id number] NAME: MEÑO COLBY [facility] Age: 25 Sex: M Admission Date: 07/01/2016 : 1990 Attending Physician: Elmer Gusman M.D. Admitting Physician: Elmer Gusman M.D. Primary Care Physician: Primary Care Physician Rachel SANTIAGO NOTES DATE OF SERVICE 07/02/2016 DISCUSSION Mr. Colby is a 25-year-old male mood disorder who was seen today. Chart was reviewed and case was discussed with the staff. He has been anxious, withdrawn, and seclusive to herself with persistent depressive symptoms and feelings of hopelessness. Meanwhile, he has been cooperative with the treatment recommendations and has been taking the medications and tolerating them fairly well with no reported side effects. MENTAL STATUS EXAMINATION Young male who is casually dressed with fair personal hygiene, appears to be in no acute distress or discomfort. The patient was awake and alert on interaction with intact orientation. His mood is anxious with congruent affect. He denies any suicidal or homicidal ideations and also denies any auditory or visual hallucinations. His insight and judgment remain significantly impaired. TREATMENT PLAN 1. We will continue him on his current medications and treatment protocol. We will monitor his response to the medications and make further adjustments as needed. 2. We will continue to follow up. Dictated by... Jose Juan Aaron/rach TD: 07/03/2016 09:23 JOB #: [id number] Unit #: [id number] #: [id number] Patient: MEÑO COLBY PEAJENNY PROGRESS NOTES Page 1 of 1 X Elmer Gusman MD PROGRESS NOTE
--- NOTE | ~2016-07-01 | PA ---
Unit #: [id number] #: [id number] Patient: MEÑO ADAMS [id number] [facility] [address] [place] [address] [id number] I MR#: [id number] NAME: MEÑO ADAMS ROOM: P182 Age: 25 Sex: M Admission Date: 07/01/2016 : 1990 Date of Assessment: Attending Physician: Elmer Gusman M.D. Admitting Physician: Elmer Gusman M.D. Primary Care Physician: Primary Care Physician No PSYCHIATRIC ASSESSMENT DATE OF SERVICE 07/01/2016. IDENTIFYING DATA Mr. Adams is a 25-year-old single male, who is a resident of [place], [place], and is known to us from previous encounter, was transferred to from [facility] Room on a voluntary basis. CHIEF COMPLAINT "I was kicked out of my group home house on Thursday for using marijuana." HISTORY OF PRESENT ILLNESS Mr. Adams is a 25-year-old male, with history of mood disorder and substance abuse, who was transferred to us, as he stated that he was kicked out of his group home house for using cannabis, cocaine, and heroin and "I was in [facility] on Thursday for first-degree wanton endangerment." The patient reports increasing depression, anxiety, irritability, significant consequences because of his addiction and feelings of hopelessness and helplessness, and having suicidal ideation with a plan to hang himself. He reports that he has history of suicidal ideation and plan to jump into traffic in the past as well. He was seen to be a significant danger to himself and as such, recommendation for inpatient level of care was made and the patient medically cleared and transferred to us. SUBSTANCE ABUSE HISTORY The patient reports history of experimentation abuse of cannabis, cocaine, opioids, and heroin appears to be his drug of choice at this time. PAST PSYCHIATRIC HISTORY The patient has a history of inpatient [facility] and review of the medical records indicate that he once again has been noncompliant with any treatment and is not seeing a psychiatrist, not taking any psychotropic medications. PAST MEDICAL HISTORY No acute or chronic medical illnesses. ALLERGIES No known medication allergies. CURRENT MEDICATIONS Unit #: [id number] #: [id number] Patient: MEÑO ADAMS None. PERSONAL AND SOCIAL HISTORY A 25-year-old male, who reports that he is single, unemployed, and essentially homeless and has poor social support system. MENTAL STATUS EXAMINATION Young male, who was casually dressed with fair personal hygiene, appears to be in no acute distress or discomfort. He was awake and alert on interaction with intact orientation to time, place, and person. His mood was anxious and depressed with a congruent affect. His speech was slow and restricted in content. His thought processes were disorganized, some looseness of associations and suicidal ideations. His insight and judgment remain significantly impaired. DIAGNOSTIC IMPRESSION Psychiatric: Major depressive disorder, recurrent, moderate, without psychotic features; opioid dependence, moderate, and acute withdrawals. Medical: None. Stressors: Moderate psychosocial stressors. TREATMENT PLAN 1. The patient has presented with history of substance abuse and mood disorder, and has been decompensating and will need inpatient hospitalization for safety and stabilization. We will start him back on his home medications and we will also start him on opioid detox protocol. 2. Supportive therapy was provided to the patient. 3. Safe, structured, and nourishing environment will be provided. ESTIMATED LENGTH OF STAY 5 to 7 days. ABILITY TO HELP SELF Limited. WILLINGNESS TO HELP SELF The patient appears to be willing to help self. STRENGTHS 1. Communicative. 2. Cooperative. PROBLEMS 1. Chronic dysphoric symptoms. 2. Poor social support system. DISCHARGE CRITERIA This will be contingent upon the patient's ability to show resolution of his depression, anxiety, and his ability to stay safe to himself, particularly after discharge from the hospital. Dictated by... Jose Juan Aaron/gomez TD: 07/02/2016 07:03 Unit #: [id number] #: [id number] Patient: MEÑO ADAMS JOB #: [id number] PSYCHIATRIC ASSESSMENT Page 1 of 1 X Elmer Gusman MD X PSYCHIATRIC ASSESSMENT
--- NOTE | ~2016-07-01 | PN ---
Unit #: [id number] #: [id number] Patient: MEÑO COLBY [id number] [facility] [address] [place] [address] [id number] MR#: [id number] NAME: MEÑO COLBY ROOM: 31 Age: 25 Sex: M Admission Date: 07/01/2016 : 1990 Attending Physician: Elmer Gusman M.D. Admitting Physician: Elmer Gusman M.D. Primary Care Physician: Primary Care Physician Rachel LEE PROGRESS NOTES DATE 07/06/2016 DISCUSSION Mr. Colby is a 35-year-old, male who was seen today and chart was reviewed and case was discussed with the staff who reports the patient has been exhibiting sexually inappropriate behavior and has been flirting with females and as such his precautions have been appropriately adjusted. MENTAL STATUS EXAM Young male who was casually dressed with fair personal hygiene, appears to be in no acute distress or discomfort. He was awake and alert with intact orientation. His mood was anxious with congruent affect. He denies any suicidal or homicidal ideation. His insight and judgement remains slightly impaired. TREATMENT PLAN 1. We will continue him on his current medications and treatment protocol. We will monitor his response to the medication and make further adjustments as needed. 2. We will continue to follow up. Dictated by... Jose Juan Aaron/jesse TD: 07/07/2016 04:34 JOB #: [id number] Unit #: [id number] #: [id number] Patient: MEÑO COLBY PROGRESS NOTES Page 1 of 1 X Elmer Gusman MD X PROGRESS NOTE
--- NOTE | ~2016-07-01 | PN ---
Unit #: [id number] #: [id number] Patient: PIPER ADAMS [id number] [facility] [address] [place] [address] [id number] MR#: [id number] NAME: PIPER ADAMS ROOM: [facility] Age: 25 Sex: M Admission Date: 07/01/2016 : 1990 Attending Physician: Elmer Gusman M.D. Admitting Physician: Elmer Gusman M.D. Primary Care Physician: Primary Care Physician Rcahel SANTIAGO NOTES DATE OF SERVICE 07/07/2016 DISCUSSION Piper is a 25-year-old male who was seen today. Chart was reviewed and case was discussed with the staff. He has been anxious, withdrawn, and rather seclusive to himself. Meanwhile, he has been cooperative with the treatment recommendations and has been taking the medications and tolerating them fairly well with no reported side effects. MENTAL STATUS EXAMINATION Young male who is casually dressed with fair personal hygiene, appears to be in no acute distress or discomfort. The patient was awake and alert on interaction with intact orientation. His mood is anxious with congruent affect. He denies any suicidal or homicidal ideations. His insight and judgment remain slightly impaired. TREATMENT PLAN 1. We will continue him on his current treatment protocol. We will monitor his response to the medications and make further adjustments as needed. 2. We will continue to follow up. Dictated by... Elmer Gusman M.D. IAA/bzg TD: 07/08/2016 13:22 JOB #: [id number] [facility] PROGRESS NOTES Page 1 of 1 X Elmer Gusman MD PROGRESS NOTE
--- NOTE | ~2016-07-01 | HP ---
Unit #: [id number] #: [id number] Patient: PIPER ADAMS [id number] [facility] [address] [place] [address] [id number] I MR#: [id number] NAME: PIPER ADAMS ROOM: [facility] Age: 25 Sex: M Admission Date: 07/01/2016 : 1990 Attending Physician: Elmer Gusman M.D. Admitting Physician: Elmer Gusman M.D. Primary Care Physician: Primary Care Physician No HISTORY AND PHYSICAL NOTE Piper is a 25 year old admitted to [facility] because of his continued drug use. He has had numerous admissions to this facility. The patient was seen and H and P dated 06/02/2016 was reviewed. This is current. No changes. Please see H and P dated 06/02/2016. Dictated by... Zakiya Urena P.A.-C. for Jose Juan Jauregui/jesse TD: 07/02/2016 00:45 JOB #: [id number] HISTORY AND PHYSICAL Page 1 of 1 X Zakiya Urena HISTORY AND PHYSICAL
--- NOTE | ~2016-07-01 | PN ---
Unit #: [id number] #: [id number] Patient: MEÑO COLBY [id number] [facility] [address] [place] [address] [id number] MR#: [id number] NAME: MEÑO COLBY ROOM: P182 Age: 25 Sex: M Admission Date: 07/01/2016 : 1990 Attending Physician: Elmer Gusman M.D. Admitting Physician: Elmer Gusman M.D. Primary Care Physician: Primary Care Physician Rachel SANTIAGO NOTES DATE OF SERVICE: 07/03/2016 SUBJECTIVE Mr. Colby is a 25-year-old male, who was seen today and chart was reviewed, and case was discussed with the staff. He has been anxious, withdrawn, rather seclusive to himself. Meanwhile, he has been cooperative with his treatment recommendations and has been taking medication and tolerating them fairly well with no reported side effects. MENTAL STATUS EXAMINATION Young male, who was casually dressed with fair personal hygiene, appears to be in no acute distress or discomfort. He was awake and alert with impaired attention and concentration. His mood was anxious with a congruent affect. His speech was slow and restricted in content. He reports having suicidal ideations, but denies any homicidal ideations. His insight and judgment remain slightly impaired. TREATMENT PLAN 1. We will continue him on his current medications and treatment protocol. We will monitor his response to medications and make further adjustments as needed. 2. We will continue to follow up. Dictated by... Jose Juan Aaron/gomez TD: 07/04/2016 08:10 JOB #: [id number] [facility] PROGRESS NOTES Page 1 of 1 X Elmer Gusman MD PROGRESS NOTE
--- NOTE | ~2016-07-01 | PN ---
Unit #: [id number] #: [id number] Patient: MEÑO ADAMS [id number] [facility] [address] [place] [address] [id number] MR#: [id number] NAME: MEÑO ADAMS ROOM: [facility] Age: 25 Sex: M Admission Date: 07/01/2016 : 1990 Attending Physician: Elmer Gusman M.D. Admitting Physician: Jose Juan Aaron PROGRESS NOTES DATE OF SERVICE: 07/05/2016 SUBJECTIVE Mr. Adams is a 25-year-old male who was seen today and chart was reviewed, and case was discussed with the staff. He has been anxious, withdrawn, and rather seclusive to himself. Meanwhile, he has been cooperative with treatment recommendation and has been taking the medications and tolerating them fairly well with no reported side effects. MENTAL STATUS EXAMINATION Young male who was casually dressed with fair personal hygiene, appears to be in no acute distress or discomfort. He was awake and alert on interaction with intact orientation. His mood was anxious with a congruent affect. He denies any suicidal or homicidal ideations. His insight and judgment remain slightly impaired. TREATMENT PLAN 1. We will continue him on his current treatment protocol. We will monitor his response to medications and make further adjustments as needed. 2. We will continue to follow up. Dictated by... Jose Juan Aaron/gomez TD: 07/05/2016 12:52 JOB #: [id number] [facility] PROGRESS NOTES Page 1 of 1 X Elmer Gusman MD PROGRESS NOTE
--- NOTE | ~2016-07-01 | PN ---
Unit #: [id number] #: [id number] Patient: MEÑO ADAMS [id number] [facility] [address] [place] [address] [id number] I MR#: [id number] NAME: MEÑO ADAMS ROOM: 82 Age: 25 Sex: M Admission Date: 07/01/2016 : 1990 Attending Physician: Elmer Gusman M.D. Admitting Physician: Elmer Gusman M.D. Primary Care Physician: Primary Care Physician Rachel LEE PROGRESS NOTES DATE OF SERVICE 07/04/2016 DISCUSSION Mr. Adams is a 25-year-old male who was seen today. Chart was reviewed and case was discussed with the staff. He has been anxious, withdrawn, and has not shown any agitation or irritability and has been cooperative with the treatment recommendations and has been taking the medications and tolerating them fairly well with no reported side effects. MENTAL STATUS EXAMINATION Young male who is casually dressed with fair personal hygiene, appears to be in no acute distress or discomfort. The patient was awake and alert with impaired attention and concentration. His mood is anxious with congruent affect. He denies any suicidal or homicidal ideations. His insight and judgment remain slightly impaired. TREATMENT PLAN 1. We will continue him on his current treatment protocol. We will monitor his response to the medications and make further adjustments as needed. 2. We will continue to follow up. Dictated by... Elmer Gusman M.D. IAA/bzg TD: 07/05/2016 08:03 JOB #: [id number] [facility] PROGRESS NOTES Page 1 of 1 X Elmer Gusman MD PROGRESS NOTE
[2016-07-02 10:11] LABS: BASOPHIL% 0.3 % (0-2.5); EOSINOPHIL# 0.2 X10e3 (0-0.7); EOSINOPHIL% 6.2 % (0.0-7.0); HEMATOCRIT 40.2 % (38.0-50.0); HEMOGLOBIN 13.5 gm/dL (13.0-16.0); LYMPHOCYTE% 60.5 % (17.0-45.0); MEAN CELL VOLUME 93.3 FL (83-96); MEAN CORPUSCULAR HEMOGLOBIN 31.2 PG (28-34); MEAN CORPUSCULAR HGB CONC 33.5 g/dL (30-36); MEAN PLATELET VOLUME 9.4 FL (6.5-11.5); MONOCYTE# 0.3 X10e3 (0-1.0); MONOCYTE% 8.1 % (3.0-12.0); NEUTROPHIL# 0.8 X10e3 (1.5-7.1); NEUTROPHIL% 24.9 % (40-75); PLATELET COUNT 168 X10e3 (140-420); RED BLOOD COUNT 4.31 X10e (3.90-5.60); RED CELL DISTRIBUTION WIDTH 14.4 % (11.0-15.5); WHITE BLOOD COUNT 3.3 X10e3 (4.0-10.5)
[2016-07-02 10:14] LABS: ALBUMIN SERUM 3.9 g/dL (3.5-5.0); BILIRUBIN,TOTAL 0.4 mg/dL (0.2-2.0); BUN/CREATININE RATIO 12.22; CALCIUM SERUM 9.2 mg/dL (8.4-10.2); CREATININE SERUM 0.9 mg/dL (0.6-1.4); GLOM FILT RATE Estimated 137.1 mL/min (>60); POTASSIUM 4.2 mmol/L (3.5-5.1); PROTEIN TOTAL SERUM 6.6 g/dL (6.0-8.3)
[2016-07-02 10:15] LABS: DIFF IND YES
[2016-07-02 11:03] LABS: ANISOCYTOSIS SL; PLATELET ESTIMATE NORMAL (NORMAL)
[2016-07-03 12:51] LABS: URINE APPEARANCE CLEAR; URINE BILIRUBIN NEG (NEG); URINE BLOOD NEG (NEG); URINE COLOR YELLOW; URINE GLUCOSE NEG (NEG); URINE KETONE NEG (NEG); URINE LEUKOCYTE ESTERASE NEG (NEG); URINE NITRATE NEG (NEG); URINE PH 5.5 (5-8); URINE PROTEIN NEG (NEG); URINE SPECIFIC GRAVITY 1.024 (1.003-1.035); URINE UROBILINOGEN 0.2 MG/DL (NEG)
[2016-07-03 13:33] LABS: AMPHETAMINE POS (NEG); BARBITURATES NEG (NEG); BENZODIAZEPINES NEG (NEG); COCAINE POS (NEG); MARIJUANA POS (NEG); OPIATES NEG (NEG); TRICYCLIC ANTIDEPRESSANTS NEG (NEG); U METHADONE NEG (NEG)
== END 2016-07-08 12:15 | disposition left against medical advice (07) | DRG 885 ==
LOC: P1E 13:13 → P1S 07-06 14:39
PROVIDERS: Psychiatry & Neurology Psychiatry
PROC: HZ2ZZZZ Detoxification Services for Substance Abuse Treatment (ICD-10-PCS; principal; 2016-07-01)
DX: F33.1 Major depressive disorder, recurrent, moderate (principal); F11.23 Opioid dependence with withdrawal; F41.9 Anxiety disorder, unspecified
CPT/HCPCS: 80053; 80307; 81003; 85025; 86592

== ENCOUNTER 2016-07-31 23:00 | Inpatient (IN) | payer OTHER ==
--- NOTE | ~2016-07-31 | PN ---
Unit #: [id number] #: [id number] Patient: MEÑO COLBY [id number] [facility] [address] [place] [address] [id number] I MR#: [id number] NAME: MEÑO COLBY ROOM: P116 Age: 25 Sex: M Admission Date: 08/01/2016 : 1990 Attending Physician: Elmer Gusman M.D. Admitting Physician: Elmer Gusman M.D. Primary Care Physician: Primary Care Physician Rachel LEE PROGRESS NOTES DATE OF SERVICE: 08/03/2016 SUBJECTIVE Mr. Colby is a 25-year-old -[place]yr[place] male who was seen today and chart was reviewed and case was discussed with the staff. he has been anxious, withdrawn, depressed, and seclusive to himself. Meanwhile, he has been taking medications and tolerating them fairly well with no reported side-effects. MENTAL STATUS EXAMINATION Young -Kyrgyz male, who was casually dressed with fair personal hygiene, appears to be in no acute distress or discomfort. He was awake and alert attention and concentration. His mood was anxious with congruent affect. He denies any suicidal or homicidal ideations. His insight and judgement remain significantly impaired. TREATMENT PLAN 1. We will continue him on his current medications and treatment protocol. We will monitor his response to medications and make further adjustments as needed. 2. We will continue to follow up. Dictated by... Jose Juan Aaron/lucianal TD: 08/03/2016 12:02 JOB #: [id number] [facility] PROGRESS NOTES Page 1 of 1 X Elmer Gusman MD PROGRESS NOTE
--- NOTE | ~2016-07-31 | PA ---
Unit #: [id number] #: [id number] [facility]: [facility] ADAMS [id number] [facility] [place] [address] [id number] I MR#: [id number] NAME: MEÑO ADAMS ROOM: P116 Age: 25 Sex: M Admission Date: 08/01/2016 : 1990 Date of Assessment: Attending Physician: Elmer Gusman M.D. Admitting Physician: Elmer Gusman M.D. Primary Care Physician: Primary Care Physician No PSYCHIATRIC ASSESSMENT IDENTIFYING DATA Mr. Adams is a 25-year-old single, -[place] male, who is known to us from previous multiple encounters and is a resident of [place], [place], and was transferred to from [facility] on a voluntary basis. CHIEF COMPLAINT "I relapsed about a week ago using ice and cocaine daily". HISTORY OF PRESENT ILLNESS Mr. Adams is a 25-year-old, -[place] male with history of mood disorder and substance abuse, who was transferred to us from [facility] where he presented stating that he relapsed on methamphetamine and crack cocaine and has been using that on daily basis and has been trying to get up and out of his current situation of being homeless and drug use and that he has been having severe depression and suicidal ideation, plan to overdose with enough drugs to end his life and was making comments to nature "go to bed you never had a black one you." He has history of being sexually inappropriate and during last hospitalization, he had to be discharged just because he was being sexually inappropriate with the staff. He once again presents with similar behavior being agitated and irritable and refuses to follow up with any treatment recommendations outside of the hospital and relapses soon afterwards, and then he presents himself to the hospital stating that he has been depressed and has been having suicidal thoughts. However, he was seen to be a significant threat to himself and recommendation for inpatient level of care for safety and stabilization was made. The patient was medically cleared at the [facility] and then transferred to us. SUBSTANCE ABUSE HISTORY The patient has extensive history of substance abuse and dependence including cannabis, cocaine, opioids, and amphetamines, and currently cocaine and methamphetamine appear to be his drug of choice. PAST PSYCHIATRIC HISTORY The patient has had history of multiple inpatient psychiatric hospitalizations at [facility] and review of the medical records indicate that he was recently discharged from my care 3 weeks ago and is supposed to be on Zyprexa and Zoloft but has been noncompliant with medication as such, has been decompensating. PAST MEDICAL HISTORY Unit #: [id number] #: [id number] Patient: MEÑO ADAMS The patient's medical history is insignificant. ALLERGIES No known medication allergies. PERSONAL AND SOCIAL HISTORY A 25-year-old -[place] male, who reports that he is single, unemployed, homeless, and has poor social support system. MENTAL STATUS EXAMINATION Young, -[place] male, who was casually dressed with fair personal hygiene, appears to be in no acute distress or discomfort. He was awake and alert with impaired attention and concentration. His mood was anxious and depressed with a congruent affect. His speech was slow and restricted in content. His thought processes were disorganized with some looseness of associations and suicidal ideations. His insight and judgment remain significantly impaired. DIAGNOSTIC IMPRESSION Psychiatric: Bipolar disorder, most recent episode depressed, recurrent, moderate, without psychotic features; methamphetamine dependence, moderate. Cocaine dependence, moderate. Medical: None. Stressors: Moderate psychosocial stressors. TREATMENT PLAN 1. The patient has presented with history of mood disorder and substance abuse and has been decompensating and will need inpatient hospitalization for safety and stabilization. We will start him back on his home medications. We will adjust the medications and monitor response. 2. Supportive therapy was provided to the patient. 3. Safe, structured, and nourishing environment will be reported. ESTIMATED LENGTH OF STAY 5 to 7 days. ABILITY TO HELP SELF Limited. WILLINGNESS TO HELP SELF The patient appears to be willing to help self. STRENGTHS 1. Communicative. 2. Cooperative. PROBLEMS 1. Chronic dysphoric symptoms. 2. Chronic chemical dependency. 3. Poor social support system. DISCHARGE CRITERIA This will be contingent upon the patient's ability to show resolution of his depression and his ability to stay safe to himself, particularly after discharge from the hospital. Dictated by... Unit #: [id number] #: [id number] Patient: MEÑO ADAMS Jose Juan Aaron/lucianal TD: 08/02/2016 15:32 JOB #: [id number] PSYCHIATRIC ASSESSMENT Page 1 of 1 X Elmer Gusman MD PSYCHIATRIC ASSESSMENT
--- NOTE | ~2016-07-31 | DS ---
Unit #: [id number] #: [id number] Patient: MEÑO ADAMS [id number] [facility] [address] [place] [address] [id number] I MR#: [id number] NAME: MEÑO ADAMS ROOM: 16 Age: 25 Sex: M Admission Date: 08/01/2016 : 1990 Discharge Date: 08/03/2016 Attending Physician: Elmer Gusman M.D. Primary Care Physician: Primary Care Physician No DISCHARGE SUMMARY IDENTIFYING DATA Mr. Trejo is a 25-year-old male, who is known to me from previous encounter, is a resident of [place], [place], and was self-referred to the hospital on a voluntary basis. DISCHARGE DIAGNOSES Psychiatric: Bipolar disorder, most recent episode depressed, recurrent, moderate, without psychotic features; alcohol dependence, moderate; and opioid dependence, moderate. Medical: None. Stressors: Moderate psychosocial stressors. HISTORY OF PRESENT ILLNESS Please see initial psychiatric evaluation for details. PAST PSYCHIATRIC HISTORY Please see initial psychiatric evaluation for details. PAST MEDICAL HISTORY Please see initial psychiatric evaluation for details. HOSPITAL COURSE The patient [facility] and was oriented to the hospital environment. Routine p.r.n. medications were initiated, and he was started back on his home medications and detox protocol was initiated as well. However, the patient was seen to be showing poor insight into his situation and poor motivation towards treatment and decided to leave against medical advice and was denying any suicidal ideations, intent, or plan and was not meeting criteria for involuntary psychiatric hospitalization and as such, it was decided that he will be discharged home and will continue treatment on an outpatient basis. DISCHARGE MEDICATIONS None. DISCHARGE CONDITION Stable. PROGNOSIS Guarded. Dictated by... Unit #: [id number] #: [id number] Patient: MEÑO ADAMS Elmer Gusman M.D. IAA/modl TD: 09/03/2016 15:04 JOB #: [id number] DISCHARGE SUMMARY Page 1 of 1 X Elmer Gusman MD X DISCHARGE SUMMARY
--- NOTE | ~2016-07-31 | HP ---
Unit #: [id number] #: [id number] Patient: PIPER ADAMS [id number] [facility] [address] [place] [address] [id number] I MR#: [id number] NAME: PIPER ADAMS ROOM: P209 Age: 25 Sex: M Admission Date: 08/01/2016 : 1990 Attending Physician: Elmer Gusman M.D. Admitting Physician: Elmer Gusman M.D. Primary Care Physician: Primary Care Physician No HISTORY AND PHYSICAL HISTORY OF PRESENT ILLNESS Piper is a 25-year-old male admitted on 08/01/[address] [place] [address] for depression and suicidal ideation. He also has relapsed on ice and crack cocaine use. PAST MEDICAL HISTORY None. PAST SURGICAL HISTORY None. ALLERGIES None. SOCIAL HISTORY Smokes 1 pack of cigarettes daily. Occasional alcohol use and frequent use of ice and crack cocaine. He is currently single and homeless. FAMILY HISTORY Noncontributory. REVIEW OF SYSTEMS CONSTITUTIONAL: No fever or chills. HEENT: Denies any sore throat, ear pain or runny nose. CARDIOVASCULAR: Denies chest pain, irregular heart rhythm or palpitations. CHEST: Denies shortness of breath or cough. No hemoptysis. GASTROINTESTINAL: Denies nausea, vomiting, diarrhea or chronic constipation. ENDOCRINE: Denies history of increased thirst or urination. No recent significant weight loss or gain. GENITOURINARY: Denies dysuria, frequency, or hematuria. SKIN: Denies any rashes. HEMATOLOGIC: Denies history of increased bleeding or bruising. MUSCULOSKELETAL: Denies any hot, swollen joints. No generalized muscle pain. NEUROLOGIC: Denies problems with vision or speech. No frequent, severe headaches. No numbness, tingling or weakness in any extremities. Denies loss of bladder or bowel control. CURRENT MEDICATIONS None. PHYSICAL EXAMINATION Unit #: [id number] #: [id number] Patient: PIPER ADAMS GENERAL: Alert, oriented, in no acute distress. VITAL SIGNS: Blood pressure 147/78, heart rate 74, respirations 20, temperature 98.8. HEIGHT: 6 feet 3. WEIGHT: 172 pounds. SKIN: Warm and dry without rash or lesion. HEENT: Normocephalic. TMs not viewed. Oral and nasal passages clear. Conjunctivae clear. PERRLA. EOMs intact. NECK: Supple without lymphadenopathy or thyromegaly. HEART: Regular rate and rhythm without murmur. LUNGS: Clear. ABDOMEN: Soft, nontender, without masses or hepatosplenomegaly. : Not done. EXTREMITIES: No evidence of cyanosis, clubbing or edema. Moves all without focal deficit. NEUROLOGICAL: Grossly within normal limits. Cranial Nerves: II: Visual cnatu are intact. III, IV AND : Extraocular movements are intact. Pupils are equal, round and reactive to light. V: Facial sensation is grossly normal. VII: Facial movements and expression are normal. VIII: Auditory acuity grossly intact. IX, X: Uvula is midline. Phonation is normal. XI: Patient shrugs shoulders and turns head normally. XII: Tongue protrudes in the midline. Sensory and Motor Function: Sensory and motor sensation is grossly normal. Motor: moves all extremities well. Coordination: Gait is normal. Deep Tendon Reflexes: Intact. IMPRESSION Psychiatric admission. RECOMMENDATIONS PSYCHIATRIC: Per psychiatrist. MEDICAL: No contraindications to participate in facility's activities. MEDICAL PROGNOSIS Good. MEDICAL CONDITION Stable. Dictated by... Javier Manley/tona TD: 08/01/2016 15:57 JOB #: [id number] Unit #: [id number] #: [id number] Patient: PIPER ADAMS HISTORY AND PHYSICAL Page 1 of 1 X EVONNE LICONA APRN X HISTORY AND PHYSICAL
--- NOTE | ~2016-07-31 | PN ---
Unit #: [id number] #: [id number] Patient: MEÑO ADAMS [id number] [facility] [address] [place] [address] [id number] I MR#: [id number] NAME: MEÑO ADAMS ROOM: 16 Age: 25 Sex: M Admission Date: 08/01/2016 : 1990 Attending Physician: Elmer Gusman M.D. Admitting Physician: Elmer Gusman M.D. Primary Care Physician: Primary Care Physician Rachel SANTIAGO NOTES DATE OF SERVICE: 08/02/2016 SUBJECTIVE The patient is a 25-year-old male, who was seen today and chart was reviewed, and case was discussed with the staff. He has been anxious, withdrawn, depressed, and seclusive to himself and was seen to be unkempt, disheveled, and isolative and seclusive. Meanwhile, he has been taking the medications and tolerating them fairly well with no reported side effects. MENTAL STATUS EXAMINATION Young, -Nigerian male, who was casually dressed with fair personal hygiene, appears to be in no acute distress or discomfort. He was awake and alert on interaction with intact orientation. His mood was anxious with a congruent affect. He reports having suicidal ideation, but denies any homicidal ideations. His insight and judgment remain slightly impaired. TREATMENT PLAN 1. We will continue on his current medications and treatment protocol. We will monitor his response and make further adjustments as needed. 2. We will continue to follow up. Dictated by... Jose Juan Aaron/gomez TD: 08/02/2016 14:25 JOB #: [id number] Unit #: [id number] #: [id number] Patient: MEÑO ADAMS PEAJENNY PROGRESS NOTES Page 1 of 1 X Elmer Gusman MD PROGRESS NOTE
[2016-08-02 12:22] LABS: BASOPHIL% 0.3 % (0-2.5); EOSINOPHIL# 0.1 X10e3 (0-0.7); EOSINOPHIL% 1.6 % (0.0-7.0); HEMATOCRIT 47.3 % (38.0-50.0); HEMOGLOBIN 15.7 gm/dL (13.0-16.0); LYMPHOCYTE# 2.2 X10e3 (1.0-3.5); LYMPHOCYTE% 55.9 % (17.0-45.0); MEAN CELL VOLUME 95.1 FL (83-96); MEAN CORPUSCULAR HEMOGLOBIN 31.5 PG (28-34); MEAN CORPUSCULAR HGB CONC 33.1 g/dL (30-36); MONOCYTE# 0.4 X10e3 (0-1.0); MONOCYTE% 9.8 % (3.0-12.0); NEUTROPHIL# 1.2 X10e3 (1.5-7.1); NEUTROPHIL% 32.4 % (40-75); PLATELET COUNT 263 X10e3 (140-420); RED BLOOD COUNT 4.98 X10e (3.90-5.60); RED CELL DISTRIBUTION WIDTH 14.8 % (11.0-15.5); WHITE BLOOD COUNT 3.8 X10e3 (4.0-10.5)
[2016-08-02 12:23] LABS: DIFF IND YES
[2016-08-02 12:29] LABS: BILIRUBIN,TOTAL 0.7 mg/dL (0.2-2.0); BUN/CREATININE RATIO 15.45; CALCIUM SERUM 9.9 mg/dL (8.4-10.2); CREATININE SERUM 1.1 mg/dL (0.6-1.4); GLOM FILT RATE Estimated 107.6 mL/min (>60); POTASSIUM 4.2 mmol/L (3.5-5.1); PROTEIN TOTAL SERUM 8.3 g/dL (6.0-8.3)
[2016-08-02 13:05] LABS: PLATELET ESTIMATE NORMAL (NORMAL)
== END 2016-08-03 20:15 | disposition home or self-care (01) | DRG 885 ==
LOC: P2S 08-01 07:38 → P1S 08-01 18:56
PROVIDERS: Psychiatry & Neurology Psychiatry
DX: F31.32 Bipolar disorder, current episode depressed, moderate (principal); F14.20 Cocaine dependence, uncomplicated; R45.851 Suicidal ideations; F15.20 Other stimulant dependence, uncomplicated; Z59.0 Homelessness; F17.210 Nicotine dependence, cigarettes, uncomplicated
CPT/HCPCS: 80053; 85025